=== PATIENT | female | born 1965 | race Caucasian/White ===

== ENCOUNTER 2016-11-06 21:08 | Emergency (ER) | payer OTHER, BC ==
[~2016-11-06] VITALS: Ht 152.4 cm; Wt 77.1 kg
[2016-11-06 21:10] VITALS: BP 144/95
[2016-11-06] MEDS ORDERED: IBUP400T18 PO (21:45)
--- NOTE | 2016-11-06 21:46 | PHYS DOC ---
Past History Past Medical History: No Pertinent History Past Surgical History: Lumbar Laminectomy Alcohol Use: None Drug Use: None Adult General Chief Complaint Chief Complaint: LOWER EXT PAIN HPI HPI 51-year-old female presenting the emergency department after injuring her right hip while walking down a ladder. She reports this occurring today earlier when she was externally rotating her hip and stepped off the ladder wrong. She describes a mild pain that is worse with flexion of the hip and walking. It radiates down her leg. It is improved with rest. The pain is dull. Review of systems is negative for numbness weakness tingling or any other injuries. All other review of systems is negative unless otherwise noted in history of present illness. Review of Systems Review of Systems SEE ABOVE. Constitutional: Denies fever or chills [] Eyes: Denies change in visual acuity, redness, or eye pain [] HENT: Denies nasal congestion or sore throat [] Respiratory: Denies cough or shortness of breath [] Cardiovascular: No additional information not addressed in HPI [] GI: Denies abdominal pain, nausea, vomiting, bloody stools or diarrhea [] : Denies dysuria or hematuria [] Musculoskeletal: Denies back pain or joint pain [] Integument: Denies rash or skin lesions [] Neurologic: Denies headache, focal weakness or sensory changes [] Endocrine: Denies polyuria or polydipsia [] Allergies Allergies Allergies Coded Allergies Type Severity Reaction Last Updated Verified No Known Drug Allergies 11/06/16 No Physical Exam Physical Exam Constitutional: Well developed, well nourished, no acute distress, non-toxic appearance. [] HENT: Normocephalic, atraumatic, bilateral external ears normal, oropharynx moist, no oral exudates, nose normal. [] Eyes: PERRLA, EOMI, conjunctiva normal, no discharge. Neck: Normal range of motion, no tenderness, supple, no stridor. Cardiovascular:Heart rate regular rhythm, no murmur [] Lungs & Thorax: Bilateral breath sounds clear to auscultation Abdomen: Bowel sounds normal, soft, no tenderness, no masses, no pulsatile masses. [] Skin: Warm, dry, no erythema, no rash. Back: No tenderness, no CVA tenderness. [] Extremities: Examination of the right hip shows pain with internal and external rotation of the hip mostly in the quadriceps muscle and IT band area. Mild pain with passive flexion and hyperextension of the hip. No erythema or ecchymosis or lacerations of the overlying skin. Palpable pulse distally with 2 second cap refill and normal neurovascular status. Nontender knee with normal range of motion. The patient's gait is mildly antalgic but she is able to ambulate without crutches or assistance. Neurologic: Alert and oriented X 3, normal motor function, normal sensory function, no focal deficits noted. [] Psychologic: Affect normal, judgement normal, mood normal. Current Patient Data Vital Signs Vital Signs Date Time Temp Pulse Resp B/P (MAP) Pulse Ox O2 Delivery O2 Flow Rate FiO2 11/06/16 21:10 98.3 86 20 96 Room Air EKG EKG [] Radiology/Procedures Radiology/Procedures [] Course & Med Decision Making Course & Med Decision Making Pertinent Labs and Imaging studies reviewed. (See chart for details) [] 51-year-old female presenting to the emergency department after injuring herself while stepping down from a ladder. Based on the mechanism of injury I felt that a fracture was very unlikely. I recommended ice rest and gentle rehabilitation of the hip with acetaminophen and ibuprofen for pain control. The patient was then discharged home in stable condition to follow up with their primary care physician over the next 2-3 days. They were to return if their symptoms worsened or if they were concerned for any reason. [id number] discharge instructions and return precautions were given. Patient's questions were answered to their satisfaction. Patient is comfortable plan. Dragon Disclaimer Dragon Disclaimer This chart was dictated in whole or in part using Voice Recognition software in a busy, high-work load, and often noisy Emergency Department environment. It may contain unintended and wholly unrecognized errors or omissions. Departure Departure: Impression: Primary Impression: Right hip pain Disposition: 01 HOME, SELF-CARE Condition: STABLE Referrals: GRAHAM ALVARENGA MD (PCP) Patient Instructions: Hip Pain Additional Instructions: Thank you for allowing us to participate in your care today. Followup with your primary care physician in 3 days if your symptoms do not improve. If you do not have a primary care provider you can ask for a list of our primary care providers. Return to the emergency department you have any new or concerning findings. This should be evaluated by the primary care physician and any necessary consulting services for continued management within a few days after discharge. Return to emergency room if you have any new or concerning symptoms including but not limited to fever, chills, nausea, vomiting, intractable pain, any new rashes, chest pain, shortness of air, uncontrolled bleeding, difficulty breathing, and/or vision loss. Scripts Ibuprofen (IBUPROFEN) 400 Mg Tablet 1 TAB PO PRN Q8HRS Y for PAIN, #20 TAB Prov: MARY HERMAN MD 11/06/16 MARY HERMAN MD November 06, 2016 21:46
== END 2016-11-06 21:45 ==
LOC: ER 21:08
DX: M25.551 Pain in right hip (principal); X50.9XXA Other and unspecified overexertion or strenuous movements or postures, initial encounter; Y93.01 Activity, walking, marching and hiking; Y99.8 Other external cause status; Y92.89 Other specified places as the place of occurrence of the external cause
CPT/HCPCS: 99282